=== PATIENT | male | born 1950 | race Caucasian/White ===

== ENCOUNTER 2021-08-31 03:50 | Inpatient (IN) | payer MEDICARE, BC ==
[2021-08-31] MEDS ORDERED: Dexamethasone 10 MG/ML VIAL ONE (04:22)
[2021-08-31 04:38] LABS: #Monocytes 0.4 10x3/uL (0.0-1.1); #Neutrophils 6.9 10x3/uL (1.5-8.4); %Basophils 0.2 % (0.0-2.0); %Eosinophils 0.1 % (0.0-6.0); %Monocytes 5.2 % (0.0-10.0); %Neutrophils 84.3 % (40.0-75.0); Hemoglobin 12.8 g/dL (13.5-17.5); Mean Corpuscular HGB CONC 33.6 g/dL (32.0-36.0); Mean Corpuscular Hemoglobin 32.5 pg (27.0-33.0); Mean Corpuscular Volume 96.7 fl (81.2-95.1); Platelet Count 219 10x3/uL (150-450); RBC Distribution Width 12.3 % (11.5-14.5); Red Blood Cell (RBC) Count 3.94 10x6/uL (4.32-5.72); White Blood Cell (WBC) Count 8.1 10x3/uL (3.5-10.5)
[2021-08-31 05:02] LABS: ALT (SGPT) 38 U/L (8-55); AST (SGOT) 44 U/L (5-34); Albumin 3.2 g/dL (3.4-4.8); Alkaline Phosphatase 47 U/L (40-110); Anion Gap 16 mmol/L (10-20); BUN (Urea Nitrogen) 22 mg/dL (8.4-25.7); Bilirubin, Total 0.3 mg/dL (0.2-1.2); Calc. Creatinine Clearance 0 mL/min (70-130); Calcium 8.2 mg/dL (7.8-10.44); Carbon Dioxide 22 mmol/L (23-31); Chloride 106 mmol/L (98-107); Globulin 3.9 g/dL (2.4-3.5); Glucose 127 mg/dL (83-110); Potassium 3.5 mmol/L (3.5-5.1); Protein, Total 7.1 g/dL (5.8-8.1); Sodium 140 mmol/L (136-145)
[2021-08-31 05:51] LABS: SARS-CoV-2 NAA Rapid Test DETECTED (NotDetected)
[2021-08-31] MEDS ORDERED: Ondansetron ODT 4 MG TAB PO PRN (07:40)
[2021-08-31] MEDS ORDERED: Senokot S 8.6-50 MG TAB PO PRN (07:40)
[2021-08-31] MEDS ORDERED: Pharmacy to Dose BARICITINIB IVPB PRN (07:43)
[2021-08-31] MEDS ORDERED: Cepastat Lozenges 1 LOZ PO PRN (07:49)
[2021-08-31] MEDS ORDERED: Apixaban 5 MG TAB ONE (09:17)
[2021-08-31] MEDS ORDERED: Cholecalciferol 1,000 UNITS (25 MCG) TAB ONE (09:19)
[2021-08-31] MEDS ORDERED: Ascorbic Acid 500 mg Chewable Tablet ONE (09:19)
[2021-08-31] MEDS ORDERED: Zinc Sulfate 220 MG CAP ONE (09:20)
[2021-08-31] MEDS: Cholecalciferol 1,000 UNITS (25 MCG) TAB PO SCH (09:44)
[2021-08-31] MEDS: Ascorbic Acid 500 mg Chewable Tablet PO SCH (09:44)
[2021-08-31] MEDS: Apixaban 5 MG TAB PO SCH ×2 (09:45→20:07)
[2021-08-31] MEDS: Zinc Sulfate 220 MG CAP PO SCH (09:45)
[2021-08-31] MEDS ORDERED: Ventolin HFA Inhaler 60 PUFF INHALER ONE (09:55)
[2021-08-31] MEDS ORDERED: Benzonatate 100 MG CAP ONE (09:55)
[2021-08-31] MEDS ORDERED: Acetaminophen 325 MG TAB ONE (09:55)
[2021-08-31] MEDS: Ventolin HFA Inhaler 60 PUFF INHALER INH PRN (10:00)
[2021-08-31] MEDS: Acetaminophen 325 MG TAB PO PRN (10:00)
[2021-08-31] MEDS: Benzonatate 100 MG CAP PO PRN (10:00)
[2021-08-31] MEDS: Dexamethasone 20 MG/5 ML VIAL SLOW IVP SCH (10:50)
[2021-08-31] MEDS: Guaifenesin DM 100-10/5 ML UDCUP PO PRN (11:00)
[2021-08-31] MEDS ORDERED: Budesonide 0.5 MG/2 ML NEB NEB SCH (18:30)
[2021-08-31] MEDS: BARICITINIB 2 MG TAB PO SCH (20:08)
[2021-09-01] MEDS: Guaifenesin DM 100-10/5 ML UDCUP PO PRN ×2 (00:10→08:52)
[2021-09-01] MEDS: Benzonatate 100 MG CAP PO PRN ×2 (00:10→08:49)
[2021-09-01 04:33] LABS: Anion Gap 15 mmol/L (10-20); BUN (Urea Nitrogen) 20 mg/dL (8.4-25.7); Calc. Creatinine Clearance 105 mL/min (70-130); Calcium 8.7 mg/dL (7.8-10.44); Carbon Dioxide 24 mmol/L (23-31); Chloride 106 mmol/L (98-107); Glucose 127 mg/dL (83-110); Potassium 4.7 mmol/L (3.5-5.1); Sodium 140 mmol/L (136-145)
[2021-09-01 04:42] LABS: #Monocytes 0.7 10x3/uL (0.0-1.1); #Neutrophils 8.9 10x3/uL (1.5-8.4); %Lymphocytes 5.4 % (18.0-47.0); %Monocytes 6.5 % (0.0-10.0); %Neutrophils 87.5 % (40.0-75.0); Hemoglobin 12.5 g/dL (13.5-17.5); Mean Corpuscular HGB CONC 33.2 g/dL (32.0-36.0); Mean Corpuscular Hemoglobin 32.3 pg (27.0-33.0); Mean Corpuscular Volume 97.2 fl (81.2-95.1); Mean Platelet Volume 9.3 fl (7.4-10.4); Platelet Count 263 10x3/uL (150-450); RBC Distribution Width 12.5 % (11.5-14.5); Red Blood Cell (RBC) Count 3.87 10x6/uL (4.32-5.72); White Blood Cell (WBC) Count 10.1 10x3/uL (3.5-10.5)
[2021-09-01] MEDS: Mometasone 100 MCG/PUFF (1 INHALER) INH SCH ×2 (07:35→19:55)
[2021-09-01] MEDS: Ventolin HFA Inhaler 60 PUFF INHALER INH PRN ×4 (07:36→19:55)
[2021-09-01] MEDS: Cholecalciferol 1,000 UNITS (25 MCG) TAB PO SCH (08:48)
[2021-09-01] MEDS: Fenofibrate Nanocrystallized 145 MG TAB PO SCH (08:48)
[2021-09-01] MEDS: Zinc Sulfate 220 MG CAP PO SCH (08:48)
[2021-09-01] MEDS: Apixaban 5 MG TAB PO SCH (08:49)
[2021-09-01] MEDS: Amlodipine 5 MG TAB PO SCH (08:49)
[2021-09-01] MEDS: Dexamethasone 20 MG/5 ML VIAL SLOW IVP SCH (08:49)
[2021-09-01] MEDS: Ascorbic Acid 500 mg Chewable Tablet PO SCH (08:49)
[2021-09-01] MEDS ORDERED: FLU VACC QS2021-22(65YR UP)/PF 240 MCG/0.7 ML SYRINGE IM ONE (09:00)
[2021-09-01] MEDS: BARICITINIB 2 MG TAB PO SCH (14:33)
[2021-09-01] MEDS ORDERED: HYDROcodone/Chlorphen Polis 5 ML UDCUP PO PRN (14:34)
[2021-09-01] MEDS: ALPRAZolam 0.25 MG TAB PO PRN ×2 (15:04→22:20)
[2021-09-01 15:30] LABS: Actual Bicarbonate (HCO3a) 23.8 mEq/L (22-28); Base Excess (BEa) 1.1 mEq/L (-2.0 to +3.0); CO2 Tension 32.6 mmHg (35.0-45.0); Calcium, Ionized (arterial) 1.19 mmol/L (1.12-1.30); Carboxyhemoglobin (COHb) 0.2 gm% (0.0-3.0); Hemoglobin (Hb) 14.4 g/dL (14.0-18.0); O2 Tension (PaO2), arterial 134.4 mmHg (> 70.0); Puncture Site LBA; pH, Arterial 7.48 (7.35-7.45)
[2021-09-01] MEDS: Enoxaparin Sodium 40 MG/0.4 ML SYRINGE SC SCH (22:02)
[2021-09-01] MEDS: Melatonin 3 MG TAB PO PRN (22:16)
[2021-09-02 05:46] LABS: #Monocytes 0.7 10x3/uL (0.0-1.1); #Neutrophils 7.8 10x3/uL (1.5-8.4); %Monocytes 7.6 % (0.0-10.0); %Neutrophils 86.1 % (40.0-75.0); Hemoglobin 12.8 g/dL (13.5-17.5); Mean Corpuscular Hemoglobin 32.7 pg (27.0-33.0); Mean Corpuscular Volume 95.9 fl (81.2-95.1); Mean Platelet Volume 8.9 fl (7.4-10.4); Platelet Count 256 10x3/uL (150-450); RBC Distribution Width 12.5 % (11.5-14.5); Red Blood Cell (RBC) Count 3.92 10x6/uL (4.32-5.72); White Blood Cell (WBC) Count 9.1 10x3/uL (3.5-10.5)
[2021-09-02 05:50] LABS: Anion Gap 13 mmol/L (10-20); BUN (Urea Nitrogen) 23 mg/dL (8.4-25.7); Calc. Creatinine Clearance 103 mL/min (70-130); Calcium 8.4 mg/dL (7.8-10.44); Carbon Dioxide 27 mmol/L (23-31); Chloride 101 mmol/L (98-107); Glucose 112 mg/dL (83-110); Potassium 4.5 mmol/L (3.5-5.1); Sodium 136 mmol/L (136-145)
[2021-09-02 05:52] LABS: ALT (SGPT) 63 U/L (8-55); AST (SGOT) 56 U/L (5-34); Albumin 3.2 g/dL (3.4-4.8); Alkaline Phosphatase 59 U/L (40-110); Bilirubin, Direct 0.3 mg/dL (0.1-0.3); Bilirubin, Total 0.6 mg/dL (0.2-1.2); Protein, Total 7.2 g/dL (5.8-8.1)
[2021-09-02] MEDS: Mometasone 100 MCG/PUFF (1 INHALER) INH SCH ×2 (08:01→19:15)
[2021-09-02] MEDS: Ventolin HFA Inhaler 60 PUFF INHALER INH PRN (08:04)
[2021-09-02] MEDS: Enoxaparin Sodium 40 MG/0.4 ML SYRINGE SC SCH ×2 (08:27→20:48)
[2021-09-02] MEDS: Dexamethasone 20 MG/5 ML VIAL SLOW IVP SCH ×2 (08:27→20:47)
[2021-09-02] MEDS: Ascorbic Acid 500 mg Chewable Tablet PO SCH (08:28)
[2021-09-02] MEDS: Cholecalciferol 1,000 UNITS (25 MCG) TAB PO SCH (08:28)
[2021-09-02] MEDS: Amlodipine 5 MG TAB PO SCH (08:28)
[2021-09-02] MEDS: Zinc Sulfate 220 MG CAP PO SCH (08:28)
[2021-09-02] MEDS: Fenofibrate Nanocrystallized 145 MG TAB PO SCH (08:29)
[2021-09-02] MEDS: Acetaminophen 325 MG TAB PO PRN (12:14)
[2021-09-02] MEDS: ALPRAZolam 0.25 MG TAB PO PRN ×2 (12:14→20:48)
[2021-09-02] MEDS ORDERED: BARICITINIB 2 MG TAB PO SCH (15:00)
[2021-09-02] MEDS ORDERED: BARICITINIB 1 MG TAB PO SCH (16:00)
[2021-09-02] MEDS: Melatonin 3 MG TAB PO PRN (20:48)
[2021-09-03 05:03] LABS: #Monocytes 0.4 10x3/uL (0.0-1.1); #Neutrophils 5.4 10x3/uL (1.5-8.4); %Basophils 0.2 % (0.0-2.0); %Lymphocytes 6.2 % (18.0-47.0); %Monocytes 6.5 % (0.0-10.0); %Neutrophils 86.5 % (40.0-75.0); Hemoglobin 13.3 g/dL (13.5-17.5); Mean Corpuscular HGB CONC 34.3 g/dL (32.0-36.0); Mean Corpuscular Hemoglobin 32.7 pg (27.0-33.0); Mean Corpuscular Volume 95.3 fl (81.2-95.1); Mean Platelet Volume 9.2 fl (7.4-10.4); Platelet Count 267 10x3/uL (150-450); RBC Distribution Width 11.9 % (11.5-14.5); Red Blood Cell (RBC) Count 4.07 10x6/uL (4.32-5.72); White Blood Cell (WBC) Count 6.3 10x3/uL (3.5-10.5)
[2021-09-03 05:32] LABS: Anion Gap 13 mmol/L (10-20); BUN (Urea Nitrogen) 28 mg/dL (8.4-25.7); Calc. Creatinine Clearance 98 mL/min (70-130); Calcium 8.7 mg/dL (7.8-10.44); Carbon Dioxide 27 mmol/L (23-31); Chloride 99 mmol/L (98-107); Glucose 137 mg/dL (83-110); Potassium 4.7 mmol/L (3.5-5.1); Sodium 134 mmol/L (136-145)
[2021-09-03 05:35] LABS: ALT (SGPT) 75 U/L (8-55); AST (SGOT) 51 U/L (5-34); Albumin 3.3 g/dL (3.4-4.8); Alkaline Phosphatase 68 U/L (40-110); Bilirubin, Direct 0.3 mg/dL (0.1-0.3); Bilirubin, Total 0.7 mg/dL (0.2-1.2); CRP (Inflammatory) 1.83 mg/dL (= or < 0.5); Protein, Total 7.3 g/dL (5.8-8.1)
[2021-09-03] MEDS: Mometasone 100 MCG/PUFF (1 INHALER) INH SCH ×2 (07:09→08:11)
[2021-09-03] MEDS: Cholecalciferol 1,000 UNITS (25 MCG) TAB PO SCH (08:24)
[2021-09-03] MEDS: Dexamethasone 20 MG/5 ML VIAL SLOW IVP SCH ×2 (08:24→20:06)
[2021-09-03] MEDS: Enoxaparin Sodium 40 MG/0.4 ML SYRINGE SC SCH ×2 (08:25→20:06)
[2021-09-03] MEDS: ALPRAZolam 0.25 MG TAB PO PRN ×2 (08:25→20:07)
[2021-09-03] MEDS: Ascorbic Acid 500 mg Chewable Tablet PO SCH (08:25)
[2021-09-03] MEDS: Zinc Sulfate 220 MG CAP PO SCH (08:26)
[2021-09-03] MEDS: Amlodipine 5 MG TAB PO SCH (08:26)
[2021-09-03] MEDS: Fenofibrate Nanocrystallized 145 MG TAB PO SCH (08:28)
[2021-09-03] MEDS ORDERED: BARICITINIB 1 MG TAB PO SCH (15:00)
[2021-09-03] MEDS ORDERED: BARICITINIB 2 MG TAB PO SCH (15:45)
[2021-09-03] MEDS: Melatonin 3 MG TAB PO PRN (20:07)
[2021-09-04 04:23] LABS: #Monocytes 0.7 10x3/uL (0.0-1.1); #Neutrophils 7.9 10x3/uL (1.5-8.4); %Basophils 0.1 % (0.0-2.0); %Lymphocytes 4.8 % (18.0-47.0); %Monocytes 7.5 % (0.0-10.0); %Neutrophils 87.1 % (40.0-75.0); Mean Corpuscular HGB CONC 34.7 g/dL (32.0-36.0); Mean Corpuscular Hemoglobin 32.3 pg (27.0-33.0); Mean Corpuscular Volume 93.3 fl (81.2-95.1); Mean Platelet Volume 9.4 fl (7.4-10.4); Platelet Count 292 10x3/uL (150-450); RBC Distribution Width 11.6 % (11.5-14.5); Red Blood Cell (RBC) Count 4.33 10x6/uL (4.32-5.72); White Blood Cell (WBC) Count 9.1 10x3/uL (3.5-10.5)
[2021-09-04 04:39] LABS: Anion Gap 16 mmol/L (10-20); BUN (Urea Nitrogen) 28 mg/dL (8.4-25.7); Calc. Creatinine Clearance 112 mL/min (70-130); Calcium 8.6 mg/dL (7.8-10.44); Carbon Dioxide 23 mmol/L (23-31); Chloride 101 mmol/L (98-107); Glucose 136 mg/dL (83-110); Potassium 4.6 mmol/L (3.5-5.1); Sodium 135 mmol/L (136-145)
[2021-09-04] MEDS: Mometasone 100 MCG/PUFF (1 INHALER) INH SCH ×2 (07:22→19:35)
[2021-09-04] MEDS: Ventolin HFA Inhaler 60 PUFF INHALER INH PRN (07:27)
[2021-09-04] MEDS: Dexamethasone 20 MG/5 ML VIAL SLOW IVP SCH ×2 (08:24→19:47)
[2021-09-04] MEDS: Amlodipine 5 MG TAB PO SCH (08:25)
[2021-09-04] MEDS: Fenofibrate Nanocrystallized 145 MG TAB PO SCH (08:25)
[2021-09-04] MEDS: Cholecalciferol 1,000 UNITS (25 MCG) TAB PO SCH (08:25)
[2021-09-04] MEDS: Zinc Sulfate 220 MG CAP PO SCH (08:25)
[2021-09-04] MEDS: Enoxaparin Sodium 40 MG/0.4 ML SYRINGE SC SCH ×2 (08:25→19:47)
[2021-09-04] MEDS: Ascorbic Acid 500 mg Chewable Tablet PO SCH (08:25)
[2021-09-04] MEDS: BARICITINIB 2 MG TAB PO SCH (14:09)
[2021-09-04] MEDS: ALPRAZolam 0.25 MG TAB PO PRN (19:47)
[2021-09-04] MEDS: Melatonin 3 MG TAB PO PRN (19:48)
[2021-09-05] MEDS: Mometasone 100 MCG/PUFF (1 INHALER) INH SCH ×2 (07:42→19:30)
[2021-09-05] MEDS: Dexamethasone 20 MG/5 ML VIAL SLOW IVP SCH ×2 (08:19→21:26)
[2021-09-05] MEDS: Enoxaparin Sodium 40 MG/0.4 ML SYRINGE SC SCH ×2 (08:19→21:26)
[2021-09-05] MEDS: Zinc Sulfate 220 MG CAP PO SCH (08:20)
[2021-09-05] MEDS: Amlodipine 5 MG TAB PO SCH (08:20)
[2021-09-05] MEDS: BARICITINIB 2 MG TAB PO SCH (08:20)
[2021-09-05] MEDS: Cholecalciferol 1,000 UNITS (25 MCG) TAB PO SCH (08:20)
[2021-09-05] MEDS: Ascorbic Acid 500 mg Chewable Tablet PO SCH (08:20)
[2021-09-05] MEDS: ALPRAZolam 0.25 MG TAB PO SCH ×3 (08:20→21:27)
[2021-09-05] MEDS: Fenofibrate Nanocrystallized 145 MG TAB PO SCH (08:28)
[2021-09-05] MEDS: Fluticasone Propionate Nasal Spray 16 gm Bottle NASAL SCH (10:40)
[2021-09-05 12:35] LABS: #Monocytes 0.8 10x3/uL (0.0-1.1); #Neutrophils 12.6 10x3/uL (1.5-8.4); %Basophils 0.1 % (0.0-2.0); %Lymphocytes 2.2 % (18.0-47.0); %Monocytes 5.7 % (0.0-10.0); %Neutrophils 91.3 % (40.0-75.0); Hemoglobin 13.8 g/dL (13.5-17.5); Mean Corpuscular HGB CONC 34.5 g/dL (32.0-36.0); Mean Corpuscular Hemoglobin 32.1 pg (27.0-33.0); Mean Platelet Volume 9.1 fl (7.4-10.4); Platelet Count 353 10x3/uL (150-450); RBC Distribution Width 11.8 % (11.5-14.5); White Blood Cell (WBC) Count 13.8 10x3/uL (3.5-10.5)
[2021-09-05 12:51] LABS: Anion Gap 15 mmol/L (10-20); BUN (Urea Nitrogen) 26 mg/dL (8.4-25.7); Calc. Creatinine Clearance 103 mL/min (70-130); Calcium 8.4 mg/dL (7.8-10.44); Carbon Dioxide 25 mmol/L (23-31); Chloride 99 mmol/L (98-107); Glucose 175 mg/dL (83-110); Potassium 4.6 mmol/L (3.5-5.1); Sodium 134 mmol/L (136-145)
[2021-09-06 04:37] LABS: ALT (SGPT) 69 U/L (8-55); AST (SGOT) 26 U/L (5-34); Albumin 3.3 g/dL (3.4-4.8); Alkaline Phosphatase 57 U/L (40-110); Bilirubin, Direct 0.4 mg/dL (0.1-0.3); Bilirubin, Total 0.9 mg/dL (0.2-1.2); Protein, Total 6.9 g/dL (5.8-8.1)
[2021-09-06] MEDS: Mometasone 100 MCG/PUFF (1 INHALER) INH SCH ×3 (08:27→19:45)
[2021-09-06] MEDS: Dexamethasone 20 MG/5 ML VIAL SLOW IVP SCH ×2 (08:31→21:16)
[2021-09-06] MEDS: Ascorbic Acid 500 mg Chewable Tablet PO SCH (08:31)
[2021-09-06] MEDS: Enoxaparin Sodium 40 MG/0.4 ML SYRINGE SC SCH ×2 (08:31→21:17)
[2021-09-06] MEDS: Zinc Sulfate 220 MG CAP PO SCH (08:31)
[2021-09-06] MEDS: Cholecalciferol 1,000 UNITS (25 MCG) TAB PO SCH (08:31)
[2021-09-06] MEDS: ALPRAZolam 0.25 MG TAB PO SCH ×3 (08:31→21:16)
[2021-09-06] MEDS: Fluticasone Propionate Nasal Spray 16 gm Bottle NASAL SCH (08:31)
[2021-09-06] MEDS: Amlodipine 5 MG TAB PO SCH (08:31)
[2021-09-06] MEDS: Fenofibrate Nanocrystallized 145 MG TAB PO SCH (08:31)
[2021-09-06] MEDS: Ventolin HFA Inhaler 60 PUFF INHALER INH PRN (10:45)
[2021-09-06] MEDS: BARICITINIB 2 MG TAB PO SCH (15:11)
[2021-09-07] MEDS: Mometasone 100 MCG/PUFF (1 INHALER) INH SCH ×2 (07:16→20:45)
[2021-09-07] MEDS: Ventolin HFA Inhaler 60 PUFF INHALER INH PRN (07:17)
[2021-09-07] MEDS: Cholecalciferol 1,000 UNITS (25 MCG) TAB PO SCH (08:22)
[2021-09-07] MEDS: Fluticasone Propionate Nasal Spray 16 gm Bottle NASAL SCH (08:23)
[2021-09-07] MEDS: Zinc Sulfate 220 MG CAP PO SCH (08:23)
[2021-09-07] MEDS: Aspirin 81 mg Enteric Coated Tablet PO SCH (08:23)
[2021-09-07] MEDS: Dexamethasone 20 MG/5 ML VIAL SLOW IVP SCH ×2 (08:23→20:32)
[2021-09-07] MEDS: Ascorbic Acid 500 mg Chewable Tablet PO SCH (08:23)
[2021-09-07] MEDS: Amlodipine 5 MG TAB PO SCH (08:23)
[2021-09-07] MEDS: ALPRAZolam 0.25 MG TAB PO SCH ×3 (08:23→20:32)
[2021-09-07] MEDS: Fenofibrate Nanocrystallized 145 MG TAB PO SCH (08:23)
[2021-09-07] MEDS: Enoxaparin Sodium 40 MG/0.4 ML SYRINGE SC SCH (08:23)
[2021-09-07] MEDS: BARICITINIB 2 MG TAB PO SCH (15:50)
[2021-09-07] MEDS ORDERED: Enoxaparin Sodium 40 MG/0.4 ML SYRINGE ONE (20:26)
[2021-09-08] MEDS: Mometasone 100 MCG/PUFF (1 INHALER) INH SCH ×2 (07:09→20:05)
[2021-09-08] MEDS: Ventolin HFA Inhaler 60 PUFF INHALER INH PRN (07:12)
[2021-09-08] MEDS: Enoxaparin Sodium 40 MG/0.4 ML SYRINGE SC SCH ×3 (08:53→21:14)
[2021-09-08] MEDS: Fenofibrate Nanocrystallized 145 MG TAB PO SCH (08:57)
[2021-09-08] MEDS: Aspirin 81 mg Enteric Coated Tablet PO SCH (08:57)
[2021-09-08] MEDS: ALPRAZolam 0.25 MG TAB PO SCH ×3 (08:57→21:14)
[2021-09-08] MEDS: Cholecalciferol 1,000 UNITS (25 MCG) TAB PO SCH (08:58)
[2021-09-08] MEDS: Dexamethasone 20 MG/5 ML VIAL SLOW IVP SCH ×2 (08:58→21:15)
[2021-09-08] MEDS: Zinc Sulfate 220 MG CAP PO SCH (08:58)
[2021-09-08] MEDS: Fluticasone Propionate Nasal Spray 16 gm Bottle NASAL SCH (08:58)
[2021-09-08] MEDS: Ascorbic Acid 500 mg Chewable Tablet PO SCH (08:58)
[2021-09-08] MEDS: Amlodipine 5 MG TAB PO SCH (08:58)
[2021-09-08] MEDS ORDERED: Artificial Tear Sol 15 ML BOT EA EYE PRN (12:04)
[2021-09-08] MEDS: BARICITINIB 2 MG TAB PO SCH (15:18)
[2021-09-08] MEDS: Melatonin 3 MG TAB PO PRN (21:14)
[2021-09-09] MEDS: Amlodipine 5 MG TAB PO SCH (08:12)
[2021-09-09] MEDS: Ascorbic Acid 500 mg Chewable Tablet PO SCH (08:13)
[2021-09-09] MEDS: Aspirin 81 mg Enteric Coated Tablet PO SCH (08:13)
[2021-09-09] MEDS: Cholecalciferol 1,000 UNITS (25 MCG) TAB PO SCH (08:14)
[2021-09-09] MEDS: Dexamethasone 20 MG/5 ML VIAL SLOW IVP SCH ×2 (08:14→08:24)
[2021-09-09] MEDS: Enoxaparin Sodium 40 MG/0.4 ML SYRINGE SC SCH ×2 (08:15→22:24)
[2021-09-09] MEDS: Zinc Sulfate 220 MG CAP PO SCH (08:17)
[2021-09-09] MEDS: Fenofibrate Nanocrystallized 145 MG TAB PO SCH (08:23)
[2021-09-09] MEDS: Fluticasone Propionate Nasal Spray 16 gm Bottle NASAL SCH (08:25)
[2021-09-09] MEDS: Mupirocin 2% Ointment 22 GM Tube TOP SCH ×3 (08:35→22:24)
[2021-09-09] MEDS: ALPRAZolam 0.25 MG TAB PO SCH ×3 (08:56→22:23)
[2021-09-09] MEDS: Mometasone 100 MCG/PUFF (1 INHALER) INH SCH ×3 (08:56→19:31)
[2021-09-09 10:05] LABS: SARS-CoV-2 NAA Rapid Test DETECTED (NotDetected)
[2021-09-09] MEDS: BARICITINIB 2 MG TAB PO SCH (14:20)
[2021-09-09] MEDS: Melatonin 3 MG TAB PO PRN (22:24)
[2021-09-10 05:08] LABS: ALT (SGPT) 37 U/L (8-55); AST (SGOT) 15 U/L (5-34); Alkaline Phosphatase 52 U/L (40-110); Bilirubin, Direct 0.4 mg/dL (0.1-0.3); Bilirubin, Total 0.9 mg/dL (0.2-1.2); Protein, Total 5.9 g/dL (5.8-8.1)
[2021-09-10] MEDS: Fenofibrate Nanocrystallized 145 MG TAB PO SCH (08:49)
[2021-09-10] MEDS: Aspirin 81 mg Enteric Coated Tablet PO SCH (08:49)
[2021-09-10] MEDS: Zinc Sulfate 220 MG CAP PO SCH (08:49)
[2021-09-10] MEDS: Amlodipine 5 MG TAB PO SCH (08:50)
[2021-09-10] MEDS: Dexamethasone 20 MG/5 ML VIAL SLOW IVP SCH (08:50)
[2021-09-10] MEDS: Mometasone 100 MCG/PUFF (1 INHALER) INH SCH ×2 (08:51→20:02)
[2021-09-10] MEDS: Enoxaparin Sodium 40 MG/0.4 ML SYRINGE SC SCH ×2 (08:51→21:36)
[2021-09-10] MEDS: Ascorbic Acid 500 mg Chewable Tablet PO SCH (08:51)
[2021-09-10] MEDS: ALPRAZolam 0.25 MG TAB PO SCH ×2 (08:52→15:18)
[2021-09-10] MEDS: Cholecalciferol 1,000 UNITS (25 MCG) TAB PO SCH (08:53)
[2021-09-10] MEDS: Mupirocin 2% Ointment 22 GM Tube TOP SCH ×3 (08:53→21:36)
[2021-09-10] MEDS: Fluticasone Propionate Nasal Spray 16 gm Bottle NASAL SCH (08:55)
[2021-09-10] MEDS: BARICITINIB 2 MG TAB PO SCH (15:27)
[2021-09-10] MEDS ORDERED: ALPRAZolam 0.25 MG TAB PO PRN (15:29)
[2021-09-11 04:24] LABS: ALT (SGPT) 30 U/L (8-55); AST (SGOT) 18 U/L (5-34); Albumin 3.2 g/dL (3.4-4.8); Alkaline Phosphatase 54 U/L (40-110); Bilirubin, Direct 0.5 mg/dL (0.1-0.3); Bilirubin, Total 1.1 mg/dL (0.2-1.2); Protein, Total 6.4 g/dL (5.8-8.1)
[2021-09-11 05:43] VITALS: BMI 28.6
[2021-09-11] MEDS: Mometasone 100 MCG/PUFF (1 INHALER) INH SCH ×2 (07:40→19:30)
[2021-09-11] MEDS ORDERED: Magnesium Citrate 300 ML BOT PO SCH (08:45)
[2021-09-11] MEDS: Zinc Sulfate 220 MG CAP PO SCH (11:40)
[2021-09-11] MEDS: Ascorbic Acid 500 mg Chewable Tablet PO SCH (11:40)
[2021-09-11] MEDS: Benzonatate 100 MG CAP PO PRN (11:40)
[2021-09-11] MEDS: Amlodipine 5 MG TAB PO SCH (11:41)
[2021-09-11] MEDS: Cholecalciferol 1,000 UNITS (25 MCG) TAB PO SCH (11:42)
[2021-09-11] MEDS: Fenofibrate Nanocrystallized 145 MG TAB PO SCH (11:43)
[2021-09-11] MEDS: Mupirocin 2% Ointment 22 GM Tube TOP SCH ×3 (11:44→21:40)
[2021-09-11] MEDS: Fluticasone Propionate Nasal Spray 16 gm Bottle NASAL SCH (11:44)
[2021-09-11] MEDS: Docusate 100 MG CAP PO SCH ×2 (11:45→21:41)
[2021-09-11] MEDS: Enoxaparin Sodium 40 MG/0.4 ML SYRINGE SC SCH ×2 (11:45→21:40)
[2021-09-11] MEDS: Dexamethasone 20 MG/5 ML VIAL SLOW IVP SCH (11:55)
[2021-09-11] MEDS: BARICITINIB 2 MG TAB PO SCH (17:15)
[2021-09-11] MEDS: Aspirin 81 mg Enteric Coated Tablet PO SCH (17:19)
[2021-09-12 04:15] LABS: ALT (SGPT) 29 U/L (8-55); AST (SGOT) 14 U/L (5-34); Albumin 3.2 g/dL (3.4-4.8); Alkaline Phosphatase 50 U/L (40-110); Bilirubin, Direct 0.5 mg/dL (0.1-0.3); Bilirubin, Total 1.1 mg/dL (0.2-1.2); Protein, Total 6.5 g/dL (5.8-8.1)
[2021-09-12] MEDS: Mometasone 100 MCG/PUFF (1 INHALER) INH SCH (07:20)
[2021-09-12] MEDS: Enoxaparin Sodium 40 MG/0.4 ML SYRINGE SC SCH (09:18)
[2021-09-12] MEDS: Dexamethasone 20 MG/5 ML VIAL SLOW IVP SCH (09:18)
[2021-09-12] MEDS: Benzonatate 100 MG CAP PO PRN (09:21)
[2021-09-12] MEDS: Aspirin 81 mg Enteric Coated Tablet PO SCH (09:21)
[2021-09-12] MEDS: Zinc Sulfate 220 MG CAP PO SCH (09:21)
[2021-09-12] MEDS: Ascorbic Acid 500 mg Chewable Tablet PO SCH (09:21)
[2021-09-12] MEDS: Fenofibrate Nanocrystallized 145 MG TAB PO SCH (09:21)
[2021-09-12] MEDS: Cholecalciferol 1,000 UNITS (25 MCG) TAB PO SCH (09:21)
[2021-09-12] MEDS: Amlodipine 5 MG TAB PO SCH (09:21)
[2021-09-12] MEDS: Docusate 100 MG CAP PO SCH (09:22)
[2021-09-12] MEDS: Mupirocin 2% Ointment 22 GM Tube TOP SCH (09:22)
[2021-09-12] MEDS: Fluticasone Propionate Nasal Spray 16 gm Bottle NASAL SCH (09:22)
[2021-09-12 12:49] VITALS: BP 119/63; TEMP 98.7
== END 2021-09-12 12:00 | DRG 177 ==
LOC: SUATTDRO 03:50 → CSHERS 03:50 → CSHERHOLD 08:48 → CSHTELE 16:53 → CSHICU 09-01 16:37 → CSHTELE 09-10 20:24
PROVIDERS: ADMIT Family Medicine; ATTEND Family Medicine
PROC: XW0DXM6 Introduction of Baricitinib into Mouth and Pharynx, External Approach, New Technology Group 6 (ICD-10-PCS; principal; 2021-08-31)
PROC: 3E0333Z Introduction of Anti-inflammatory into Peripheral Vein, Percutaneous Approach (ICD-10-PCS; 2021-08-31)
PROC: 8E0ZXY6 Isolation (ICD-10-PCS; 2021-08-31)
DX: U07.1 COVID-19 (principal); J12.82 Pneumonia due to coronavirus disease 2019; J96.01 Acute respiratory failure with hypoxia; I10 Essential (primary) hypertension; F41.9 Anxiety disorder, unspecified; I48.0 Paroxysmal atrial fibrillation; I08.0 Rheumatic disorders of both mitral and aortic valves; R53.81 Other malaise; Z79.899 Other long term (current) drug therapy; Z90.49 Acquired absence of other specified parts of digestive tract; Z79.01 Long term (current) use of anticoagulants
CPT/HCPCS: 36415; 36600; 71045; 80048; 80053; 80076; 82728; 82805; 83880; 84484; 85025; 85379; 85652; 86140; 87040; 93005; 93306; 94640; 94760; 94762; 96374; J1100; J1650; U0002